=== PATIENT | female | born 1940 | race African-American/Black ===

== ENCOUNTER 2021-12-20 18:46 | Inpatient (IN) | payer MEDICARE ==
[2021-12-20 19:40] LABS: #Eosinphils 0.1 thou/uL (0.0-0.7); #Lymphocytes 1.5 thou/uL (1.20-3.40); #Monocytes 0.8 thou/uL (0.11-0.59); #Neutrophils 7.2 thou/uL (1.40-6.50); %Basophils 0.1 % (0.0-1.0); %Eosinophils 0.8 % (0.0-10.0); %Lymphocytes 15.4 % (21.0-51.0); %Monocytes 8.4 % (0.0-10.0); %Neutrophils 75.3 % (42.0-75.0); Hemoglobin 10.7 g/dL (12.0-16.0); Mean Corpuscular HGB CONC 31.7 g/dL (32.0-36.0); Mean Corpuscular Volume 63.1 fL (78.0-98.0); RBC Distribution Width 17.1 % (11.5-14.5); Red Blood Cell (RBC) Count 5.38 mill/uL (4.20-5.40); White Blood Cell (WBC) Count 9.6 thou/uL (4.8-10.8)
[2021-12-20 19:53] LABS: Anisocytosis SLIGHT = 6-15 cells (100X) (0-5/hpf); Burr Cells SLIGHT = 2-5 cells (100X) (0-1/hpf); MDiff Complete? YES; Microcytosis SLIGHT = 6-15 cells (100X) (0-5/hpf); Ovalocytes SLIGHT = 2-5 cells (100X) (0-1/hpf); Platelet Count 114 thou/uL (130-400); Platelet Morphology Comment Appears Decreased; Polychromasia SLIGHT = 2-3 cells (100X) (0-2/hpf); Reflex for Review?? YES; Target Cells SLIGHT = 2-5 cells (100X) (0-1/hpf)
[2021-12-20 20:00] LABS: ALT (SGPT) 15 U/L (8-55); AST (SGOT) 15 U/L (5-34); Albumin 3.3 g/dL (3.4-4.8); Alkaline Phosphatase 53 U/L (40-110); Anion Gap 18 mmol/L (10-20); BUN (Urea Nitrogen) 61 mg/dL (9.8-20.1); Bilirubin, Total 1.4 mg/dL (0.2-1.2); Calc. Creatinine Clearance 0 mL/min (70-130); Calcium 8.6 mg/dL (7.8-10.44); Carbon Dioxide 18 mmol/L (23-31); Chloride 102 mmol/L (98-107); Globulin 2.9 g/dL (2.4-3.5); Glucose 135 mg/dL (83-110); Potassium 4.3 mmol/L (3.5-5.1); Protein, Total 6.2 g/dL (5.8-8.1); Sodium 134 mmol/L (136-145)
[2021-12-20 21:33] LABS: CKMB 1.2 ng/mL (0-6.6)
[2021-12-20] MEDS ORDERED: Sodium Chloride 0.9% 1,000 ML IV SCH (22:00)
[2021-12-21 01:25] VITALS: BMI 43.9
[2021-12-21 02:02] LABS: Lactic Acid 2.6 mmol/L (0.5-2.2)
[2021-12-21] MEDS ORDERED: Ondansetron PF 4 MG/2 ML Vial IVP PRN (04:26)
[2021-12-21] MEDS ORDERED: Acetaminophen 325 MG TAB PO PRN (04:26)
[2021-12-21] MEDS: Levothyroxine Sodium 75 MCG TAB PO SCH (06:28)
[2021-12-21] MEDS: Sodium Chloride 0.9% 1,000 ML IV SCH ×2 (06:28→18:52)
[2021-12-21] MEDS: Carvedilol 25 MG TAB PO SCH ×2 (08:49→16:17)
[2021-12-21] MEDS: Cholecalciferol 1,000 UNITS (25 MCG) TAB PO SCH (08:50)
[2021-12-21] MEDS: Heparin 5,000 UNITS/ML VIAL SC SCH ×3 (08:53→21:02)
[2021-12-21 08:58] LABS: Potassium, Urine 24.5 mmol/L
[2021-12-21 09:41] LABS: Iron 153 ug/dL (50-170); Iron Binding Capacity, Total 149 mcg/dL (265-497)
[2021-12-21 19:18] LABS: Bilirubin Negative (Negative); Blood, Urine Negative (Negative); Clarity Clear (Clear); Glucose, Urine (Dipstick) Normal (Negative); Ketone, Urine Negative (Negative); Leukocyte 75 Leu/uL (Negative); Nitrite Negative (Negative); Protein, Urine (Dipstick) Negative (Neg-Trace); Specific Gravity, Urine 1.017 (1.002-1.036); Urobilinogen Normal mg/dL (Less than 2)
[2021-12-21 19:28] LABS: RBC/HPF 0-3 HPF (0-3); Squamous Epithelial 0-3 HPF (0-3); WBC/HPF 0-3 HPF (0-3)
[2021-12-21 20:23] LABS: Creatinine, Urine 129.09 mg/dL (47-110)
[2021-12-21] MEDS: Atorvastatin Calcium 10 MG TAB PO SCH (21:02)
[2021-12-22 05:42] LABS: Anion Gap 16 mmol/L (10-20); BUN (Urea Nitrogen) 57 mg/dL (9.8-20.1); Calc. Creatinine Clearance 31 mL/min (70-130); Calcium 8.6 mg/dL (7.8-10.44); Carbon Dioxide 19 mmol/L (23-31); Chloride 108 mmol/L (98-107); Glucose 109 mg/dL (83-110); Magnesium 1.8 mg/dL (1.6-2.6); Potassium 4.2 mmol/L (3.5-5.1); Sodium 139 mmol/L (136-145); Uric Acid 14.2 mg/dL (2.6-6.0)
[2021-12-22 06:12] LABS: Band 9 % (5-11); Eosinophils 3 % (0-10); Hemoglobin 9.9 g/dL (12.0-16.0); Hypochromia SLIGHT = 6-15 cells (100X) (0-5/hpf); Lymphocytes 11 % (21-51); MDiff Complete? YES; Mean Corpuscular HGB CONC 30.5 g/dL (32.0-36.0); Mean Corpuscular Hemoglobin 19.6 pg (27.0-31.0); Mean Corpuscular Volume 64.4 fL (78.0-98.0); Mean Platelet Volume 6.8 fL (7.4-10.4); Metamyelocyte 1 % (0-0); Microcytosis SLIGHT = 6-15 cells (100X) (0-5/hpf); Monocytes 9 % (0-10); Neutrophil 66 % (42-75); Nucleated RBC 1 % (0); Platelet Count 179 thou/uL (130-400); RBC Distribution Width 17.4 % (11.5-14.5); Reactive Lymphocytes 1 % (0-10); Red Blood Cell (RBC) Count 5.06 mill/uL (4.20-5.40); Schistocytes SLIGHT = 2-5 cells (100X) (0-1/hpf); Tear Drops SLIGHT = 2-5 cells (100X) (0-1/hpf); White Blood Cell (WBC) Count 9.1 thou/uL (4.8-10.8)
[2021-12-22] MEDS: Levothyroxine Sodium 75 MCG TAB PO SCH (06:25)
[2021-12-22] MEDS: Sodium Chloride 0.9% 1,000 ML IV SCH (06:26)
[2021-12-22] MEDS: Cholecalciferol 1,000 UNITS (25 MCG) TAB PO SCH (09:00)
[2021-12-22] MEDS: Carvedilol 25 MG TAB PO SCH ×2 (09:00→17:08)
[2021-12-22] MEDS: Heparin 5,000 UNITS/ML VIAL SC SCH ×3 (09:00→21:26)
[2021-12-22] MEDS ORDERED: Albuterol Sulfate 2.5 mg/3 ml Neb NEB PRN (12:47)
[2021-12-22] MEDS ORDERED: Albuterol Sulfate 2.5 mg/3 ml Neb NEB SCH (13:00)
[2021-12-22] MEDS: methylPREDNISolone Sod Succ 40 MG VIAL IVP SCH (17:08)
[2021-12-22] MEDS: Atorvastatin Calcium 10 MG TAB PO SCH (21:26)
[2021-12-23] MEDS: methylPREDNISolone Sod Succ 40 MG VIAL IVP SCH ×3 (00:14→12:04)
[2021-12-23 05:50] LABS: #Eosinphils 0.3 thou/uL (0.0-0.7); #Lymphocytes 1.4 thou/uL (1.20-3.40); #Monocytes 0.6 thou/uL (0.11-0.59); #Neutrophils 7.5 thou/uL (1.40-6.50); %Basophils 0.4 % (0.0-1.0); %Lymphocytes 14.5 % (21.0-51.0); %Monocytes 5.9 % (0.0-10.0); %Neutrophils 76.2 % (42.0-75.0); Mean Corpuscular HGB CONC 31.3 g/dL (32.0-36.0); Mean Corpuscular Hemoglobin 20.7 pg (27.0-31.0); Mean Corpuscular Volume 66.1 fL (78.0-98.0); Mean Platelet Volume 6.4 fL (7.4-10.4); Platelet Count 201 thou/uL (130-400); RBC Distribution Width 17.3 % (11.5-14.5); Red Blood Cell (RBC) Count 4.83 mill/uL (4.20-5.40); White Blood Cell (WBC) Count 9.9 thou/uL (4.8-10.8)
[2021-12-23 06:08] LABS: Anion Gap 16 mmol/L (10-20); BUN (Urea Nitrogen) 54 mg/dL (9.8-20.1); Calc. Creatinine Clearance 31 mL/min (70-130); Calcium 8.6 mg/dL (7.8-10.44); Carbon Dioxide 16 mmol/L (23-31); Chloride 107 mmol/L (98-107); Glucose 114 mg/dL (83-110); Potassium 4.9 mmol/L (3.5-5.1); Sodium 134 mmol/L (136-145)
[2021-12-23] MEDS: Levothyroxine Sodium 75 MCG TAB PO SCH (06:14)
[2021-12-23] MEDS: Cholecalciferol 1,000 UNITS (25 MCG) TAB PO SCH (09:17)
[2021-12-23] MEDS: Carvedilol 25 MG TAB PO SCH ×2 (09:17→17:16)
[2021-12-23] MEDS: Heparin 5,000 UNITS/ML VIAL SC SCH ×2 (09:18→17:16)
[2021-12-23] MEDS ORDERED: Albuterol Sulfate 2.5 mg/3 ml Neb NEB PRN (10:46)
[2021-12-23 11:28] VITALS: TEMP 97.6
[2021-12-23 11:54] VITALS: BP 120/57
== END 2021-12-23 17:35 | disposition home health service (06) | DRG 683 ==
LOC: ERS 18:46 → 2SW 21:44 → OBSVTOIN 12-22 13:43
PROVIDERS: ADMIT Internal Medicine; ATTEND Internal Medicine
DX: N17.9 Acute kidney failure, unspecified (principal); Z68.41 Body mass index [BMI] 40.0-44.9, adult; E87.2 Acidosis; N18.4 Chronic kidney disease, stage 4 (severe); E11.22 Type 2 diabetes mellitus with diabetic chronic kidney disease; I12.9 Hypertensive chronic kidney disease with stage 1 through stage 4 chronic kidney disease, or unspecified chronic kidney disease; M10.9 Gout, unspecified; E66.01 Morbid (severe) obesity due to excess calories; D50.9 Iron deficiency anemia, unspecified; E03.9 Hypothyroidism, unspecified; Z96.643 Presence of artificial hip joint, bilateral; Z96.653 Presence of artificial knee joint, bilateral; D63.1 Anemia in chronic kidney disease; E88.09 Other disorders of plasma-protein metabolism, not elsewhere classified; E86.1 Hypovolemia; L27.1 Localized skin eruption due to drugs and medicaments taken internally; T50.4X5A Adverse effect of drugs affecting uric acid metabolism, initial encounter; Z85.038 Personal history of other malignant neoplasm of large intestine; Z88.8 Allergy status to other drugs, medicaments and biological substances; Z79.899 Other long term (current) drug therapy; Z79.890 Hormone replacement therapy; Z79.52 Long term (current) use of systemic steroids; Z82.49 Family history of ischemic heart disease and other diseases of the circulatory system; Z83.3 Family history of diabetes mellitus; Z95.5 Presence of coronary angioplasty implant and graft; Z98.51 Tubal ligation status
CPT/HCPCS: 36415; 36416; 71045; 76770; 80048; 80053; 81001; 82306; 82553; 82570; 82728; 83540; 83550; 83605; 83735; 83970; 84133; 84156; 84300; 84484; 84550; 85025; 85060; 93005; 93010; 94640; 94760; 96360; 96361; G0378; J1644; J2920; J7050; J7611

== ENCOUNTER 2022-01-02 12:51 | Observation (INO) | payer MEDICARE ==
[2022-01-02 13:38] LABS: #Eosinphils 1.2 thou/uL (0.0-0.7); #Lymphocytes 1.5 thou/uL (1.20-3.40); #Monocytes 0.7 thou/uL (0.11-0.59); #Neutrophils 6.6 thou/uL (1.40-6.50); %Basophils 0.4 % (0.0-1.0); %Eosinophils 11.7 % (0.0-10.0); %Lymphocytes 14.9 % (21.0-51.0); %Monocytes 7.2 % (0.0-10.0); %Neutrophils 65.8 % (42.0-75.0); Mean Corpuscular HGB CONC 30.6 g/dL (32.0-36.0); Mean Corpuscular Hemoglobin 20.1 pg (27.0-31.0); Mean Corpuscular Volume 65.5 fL (78.0-98.0); Mean Platelet Volume 7.4 fL (7.4-10.4); Platelet Count 185 thou/uL (130-400); RBC Distribution Width 17.7 % (11.5-14.5); Red Blood Cell (RBC) Count 4.47 mill/uL (4.20-5.40); White Blood Cell (WBC) Count 10.1 thou/uL (4.8-10.8)
[2022-01-02 14:05] LABS: ALT (SGPT) 20 U/L (8-55); AST (SGOT) 22 U/L (5-34); Albumin 2.6 g/dL (3.4-4.8); Alkaline Phosphatase 75 U/L (40-110); Anion Gap 14 mmol/L (10-20); BUN (Urea Nitrogen) 49 mg/dL (9.8-20.1); Bilirubin, Total 1.1 mg/dL (0.2-1.2); Calc. Creatinine Clearance 0 mL/min (70-130); Calcium 8.2 mg/dL (7.8-10.44); Carbon Dioxide 25 mmol/L (23-31); Chloride 106 mmol/L (98-107); Globulin 2.1 g/dL (2.4-3.5); Glucose 108 mg/dL (83-110); Potassium 4.3 mmol/L (3.5-5.1); Protein, Total 4.7 g/dL (5.8-8.1); Sodium 141 mmol/L (136-145)
[2022-01-02 14:12] LABS: Phosphorus 3.1 mg/dL (2.3-4.7)
[2022-01-02 14:14] LABS: Magnesium 1.8 mg/dL (1.6-2.6)
[2022-01-02 20:03] LABS: Bacteria/HPF 1+ HPF (None Seen); Bilirubin Negative (Negative); Blood, Urine 3+ (Negative); Clarity Clear (Clear); Glucose, Urine (Dipstick) Normal (Negative); Ketone, Urine Negative (Negative); Leukocyte 250 Leu/uL (Negative); Nitrite Negative (Negative); Protein, Urine (Dipstick) Negative (Neg-Trace); RBC/HPF 21-50 HPF (0-3); Specific Gravity, Urine 1.009 (1.002-1.036); Squamous Epithelial None Seen HPF (0-3); Urobilinogen Normal mg/dL (Less than 2)
[2022-01-03 00:03] VITALS: BMI 45.9
[2022-01-03] MEDS ORDERED: Non-Formulary Item 1 EACH (Albuterol Sulfate [Proventil Hfa] 200 PUFF Inh) PO PRN (10:21)
[2022-01-03] MEDS ORDERED: Albuterol 200 PUFF (6.7GM INHALER) INH PRN (10:32)
[2022-01-03] MEDS ORDERED: Levothyroxine Sodium 75 MCG TAB PO SCH (10:45)
[2022-01-03] MEDS ORDERED: Cholecalciferol 1,000 UNITS (25 MCG) TAB PO SCH (10:45)
[2022-01-03] MEDS ORDERED: Carvedilol 25 MG TAB PO SCH (10:45)
[2022-01-03] MEDS ORDERED: Furosemide 80 MG TAB PO SCH (10:45)
[2022-01-03] MEDS: Atorvastatin Calcium 10 MG TAB PO SCH (20:48)
[2022-01-03] MEDS: Carvedilol 25 MG TAB PO SCH (20:49)
[2022-01-04] MEDS: Levothyroxine Sodium 75 MCG TAB PO SCH (05:53)
[2022-01-04] MEDS: Furosemide 80 MG TAB PO SCH (08:11)
[2022-01-04] MEDS: Cholecalciferol 1,000 UNITS (25 MCG) TAB PO SCH (08:12)
[2022-01-04] MEDS: Carvedilol 25 MG TAB PO SCH ×2 (08:12→20:31)
[2022-01-04] MEDS ORDERED: Non-Formulary Item 1 EACH (Levothyroxine Sodium [Levothyroxine] 75 MCG Capsule) PO SCH (09:00)
[2022-01-04] MEDS ORDERED: Non-Formulary Item 1 EACH (Cholecalciferol (Vitamin D3) [Vitamin D3] 125 MCG Tablet) PO SCH (09:00)
[2022-01-04 10:28] LABS: Anion Gap 13 mmol/L (10-20); BUN (Urea Nitrogen) 45 mg/dL (9.8-20.1); Calc. Creatinine Clearance 34 mL/min (70-130); Calcium 8.1 mg/dL (7.8-10.44); Carbon Dioxide 26 mmol/L (23-31); Chloride 108 mmol/L (98-107); Glucose 130 mg/dL (83-110); Magnesium 1.8 mg/dL (1.6-2.6); Phosphorus 3.4 mg/dL (2.3-4.7); Potassium 3.9 mmol/L (3.5-5.1); Sodium 143 mmol/L (136-145)
[2022-01-04 11:18] LABS: #Eosinphils 1.2 thou/uL (0.0-0.7); #Lymphocytes 1.3 thou/uL (1.20-3.40); #Monocytes 0.7 thou/uL (0.11-0.59); #Neutrophils 4.5 thou/uL (1.40-6.50); %Basophils 0.1 % (0.0-1.0); %Lymphocytes 16.4 % (21.0-51.0); %Monocytes 8.5 % (0.0-10.0); Hemoglobin 8.3 g/dL (12.0-16.0); Hypochromia MARKED = >30 cells (100X) (0-5/hpf); MDiff Complete? YES; Mean Corpuscular HGB CONC 30.6 g/dL (32.0-36.0); Mean Corpuscular Hemoglobin 20.1 pg (27.0-31.0); Mean Corpuscular Volume 65.8 fL (78.0-98.0); Mean Platelet Volume 6.6 fL (7.4-10.4); Microcytosis MODERATE=15-30 cells (100X) (0-5/hpf); Ovalocytes MODERATE= 6-15 cells (100X) (0-1/hpf); Platelet Count 170 thou/uL (130-400); Platelet Morphology Comment Appears Adequate; Polychromasia SLIGHT = 2-3 cells (100X) (0-2/hpf); RBC Distribution Width 17.9 % (11.5-14.5); Red Blood Cell (RBC) Count 4.11 mill/uL (4.20-5.40); Schistocytes SLIGHT = 2-5 cells (100X) (0-1/hpf); Target Cells SLIGHT = 2-5 cells (100X) (0-1/hpf); Tear Drops SLIGHT = 2-5 cells (100X) (0-1/hpf); White Blood Cell (WBC) Count 7.7 thou/uL (4.8-10.8)
[2022-01-04] MEDS: Atorvastatin Calcium 10 MG TAB PO SCH (20:31)
[2022-01-05] MEDS: Levothyroxine Sodium 75 MCG TAB PO SCH (05:33)
[2022-01-05 05:36] LABS: Anion Gap 12 mmol/L (10-20); BUN (Urea Nitrogen) 43 mg/dL (9.8-20.1); Calc. Creatinine Clearance 36 mL/min (70-130); Calcium 8.1 mg/dL (7.8-10.44); Carbon Dioxide 30 mmol/L (23-31); Chloride 105 mmol/L (98-107); Glucose 87 mg/dL (83-110); Magnesium 1.8 mg/dL (1.6-2.6); Potassium 4.1 mmol/L (3.5-5.1); Sodium 143 mmol/L (136-145)
[2022-01-05 05:52] LABS: Band 11 % (5-11); Eosinophils 16 % (0-10); Hemoglobin 8.4 g/dL (12.0-16.0); Hypochromia SLIGHT = 6-15 cells (100X) (0-5/hpf); Lymphocytes 9 % (21-51); MDiff Complete? YES; Mean Corpuscular HGB CONC 31.5 g/dL (32.0-36.0); Mean Corpuscular Hemoglobin 20.4 pg (27.0-31.0); Mean Corpuscular Volume 64.9 fL (78.0-98.0); Mean Platelet Volume 6.1 fL (7.4-10.4); Metamyelocyte 1 % (0-0); Microcytosis SLIGHT = 6-15 cells (100X) (0-5/hpf); Monocytes 10 % (0-10); Neutrophil 51 % (42-75); Nucleated RBC 2 % (0); Platelet Count 175 thou/uL (130-400); RBC Distribution Width 17.6 % (11.5-14.5); Reactive Lymphocytes 1 % (0-10); Red Blood Cell (RBC) Count 4.08 mill/uL (4.20-5.40); Schistocytes SLIGHT = 2-5 cells (100X) (0-1/hpf); Tear Drops SLIGHT = 2-5 cells (100X) (0-1/hpf); White Blood Cell (WBC) Count 9.1 thou/uL (4.8-10.8)
[2022-01-05] MEDS: Furosemide 80 MG TAB PO SCH (09:03)
[2022-01-05] MEDS: Carvedilol 25 MG TAB PO SCH ×2 (09:03→21:37)
[2022-01-05] MEDS: Cholecalciferol 1,000 UNITS (25 MCG) TAB PO SCH (09:03)
[2022-01-05] MEDS: Atorvastatin Calcium 10 MG TAB PO SCH (21:37)
[2022-01-06] MEDS: Levothyroxine Sodium 75 MCG TAB PO SCH (05:21)
[2022-01-06] MEDS: Carvedilol 25 MG TAB PO SCH (08:15)
[2022-01-06] MEDS: Furosemide 80 MG TAB PO SCH (08:15)
[2022-01-06] MEDS: Cholecalciferol 1,000 UNITS (25 MCG) TAB PO SCH (08:15)
[2022-01-06 15:59] VITALS: BP 117/57; TEMP 95.6
== END 2022-01-06 16:41 | disposition home or self-care (01) ==
LOC: ERS 12:51 → ERHOLD 15:10 → NEURO 20:47
PROVIDERS: ADMIT Internal Medicine; ATTEND Internal Medicine
DX: R53.81 Other malaise (principal); I12.9 Hypertensive chronic kidney disease with stage 1 through stage 4 chronic kidney disease, or unspecified chronic kidney disease; E11.22 Type 2 diabetes mellitus with diabetic chronic kidney disease; N18.4 Chronic kidney disease, stage 4 (severe); D63.1 Anemia in chronic kidney disease; N17.9 Acute kidney failure, unspecified; M10.9 Gout, unspecified; E03.9 Hypothyroidism, unspecified; R23.4 Changes in skin texture; T50.4X5A Adverse effect of drugs affecting uric acid metabolism, initial encounter; E88.09 Other disorders of plasma-protein metabolism, not elsewhere classified; E66.01 Morbid (severe) obesity due to excess calories; Z68.42 Body mass index [BMI] 45.0-49.9, adult; Z85.038 Personal history of other malignant neoplasm of large intestine; Z79.890 Hormone replacement therapy; Z79.899 Other long term (current) drug therapy; Z88.8 Allergy status to other drugs, medicaments and biological substances; Z20.822 Contact with and (suspected) exposure to COVID-19
CPT/HCPCS: 71045; 80048 ×2; 80053; 83735 ×3; 83880; 84100 ×2; 84484; 85025 ×3; 93005; 94760; 97116 ×2; 97139 ×4; 97530 ×2; 97535; 99285; G0378 ×6; U0003; U0005; 36415; 81003; 81015